=== PATIENT | female | born 1970 | race Hispanic/Latino ===

== ENCOUNTER 2022-11-07 11:40 | Emergency (ER) | payer BC, OTHER ==
[~2022-11-07] VITALS: Ht 154.9 cm; Wt 69.9 kg
[2022-11-07] MEDS ORDERED: 0.9%NACL 1000ML 1,000 ML IV ONE (12:30)
[2022-11-07] MEDS ORDERED: MORPHINE 2 MG SYG IVP ONE (12:30)
[2022-11-07] MEDS ORDERED: FAMOTIDINE 20MG VIAL IV ONE (12:30)
[2022-11-07] MEDS ORDERED: ONDANSETRON 4MG INJ IVP ONE (12:30)
[2022-11-07 12:42] LABS: BASOPHILS % (AUTO) 0.2 % (0.0-5.0); EOSINOPHILS % (AUTO) 0.1 % (0.0-8.0); HEMATOCRIT 42.7 % (36-48); LYMPHOCYTES % (AUTO) 7.4 % (21.0-51.0); MEAN CORPUSCULAR HEMOGLOBIN 30.1 pg (27.0-33.0); MEAN CORPUSCULAR HGB CONC 34.7 g/dL (32.0-36.0); MEAN CORPUSCULAR VOLUME 86.8 fL (79-99); MONOCYTES % (AUTO) 1.7 % (3.0-13.0); NEUTROPHILS % (AUTO) 90.5 % (40.0-77.0); PLATELET COUNT (AUTO) 335 K/uL (130-400); RED BLOOD CELL COUNT(AUTO) 4.92 MIL/uL (4.00-5.50); RED CELL DISTRIBUTION WIDTH 12.7 % (11.0-15.5); WHITE BLOOD COUNT (AUTO) 8.1 K/uL (4.8-10.8)
[2022-11-07 12:51] LABS: CREATININE 0.7 mg/dL (0.5-1.5); POTASSIUM 3.6 mmol/L (3.5-5.1)
[2022-11-07 12:55] LABS: ALBUMIN 4.2 g/dL (3.5-5.0); TOTAL PROTEIN, SERUM 8.7 g/dL (6.0-8.3)
[2022-11-07] MEDS ORDERED: NAPR500T6 PO (15:26)
[2022-11-07 15:34] VITALS: BP 124/74
== END 2022-11-07 15:40 | disposition home or self-care (01) ==
LOC: EDH 11:40
DX: S00.83XA Contusion of other part of head, initial encounter (principal); R10.13 Epigastric pain; M54.2 Cervicalgia; W18.30XA Fall on same level, unspecified, initial encounter; Y93.89 Activity, other specified; Y92.89 Other specified places as the place of occurrence of the external cause; Y99.8 Other external cause status
CPT/HCPCS: 99285; 70450; 96374; 96361; 96375; 84484; 80053; 84703; 85025; 36415; 72125; 71250; 70486; 74176; 93005; J3490; J7030; J2405